=== PATIENT | female | born 1945 | race Caucasian/White ===

== ENCOUNTER → 2017-01-10 | Outpatient (CLI) | payer OTHER ==
[~2017-01-10] MED LIST: ALPR-411 PO; LRT5 PO; PRED20TA PO
[2017-01-10 13:06] LABS: BASO % 0.4 %; BASO ABS # 0.02 K/uL (0-0.2); COMPLETE YES; EOS % 2.8 %; HEMATOCRIT 41.1 % (37-47); LYMPH % 42.1 %; LYMPH ABS # 1.98 K/uL (1.2-3.4); MEAN CELL VOLUME 90.1 fL (80-100); MEAN CORPUSCULAR HEMOGLOBIN 29.8 pg (25-34); MEAN CORPUSCULAR HGB CONC 33.1 g/dl (32-36); MONO % 7.2 %; NEUT % 47.5 %; PLATELET COUNT 183 K/uL (130-400); RED BLOOD COUNT 4.56 M/uL (4.2-5.4)
[2017-01-10 15:36] LABS: BLOOD UREA NITROGEN 20 mg/dl (7-18); BUN/CREATININE RATIO 21.4 (10-20); CALCIUM 9.9 mg/dl (8.5-10.1); CARBON DIOXIDE 30 mmol/L (21-32); CHLORIDE 105 mmol/L (98-107); CREATININE 0.94 mg/dl (0.60-1.20); GLUCOSE 84 mg/dl (70-99); SODIUM 141 mmol/L (136-145)
[2017-01-10 15:41] LABS: CHOLESTEROL 234 mg/dl (0-200); CHOLESTEROL/HDL RATIO 2.8; HDL CHOLESTEROL 83 mg/dl; LDL CHOLESTEROL CALCULATED 128 mg/dl; PHOSPHORUS 3.1 mg/dl (2.5-4.9); TRIGLYCERIDES 114 mg/dl (0-150); VERY LOW DENSITY LIPOPROT CALC 23 mg/dl
== END | disposition home or self-care (01) ==
LOC: C.LABMFLN 09:07
PROVIDERS: ATTEND Family Medicine
DX: E78.5 Hyperlipidemia, unspecified (principal); M81.0 Age-related osteoporosis without current pathological fracture; E55.9 Vitamin D deficiency, unspecified

== ENCOUNTER → 2017-02-13 | Outpatient (CLI) | payer OTHER ==
--- NOTE | 2017-02-13 16:12 | MAMMOGRAPHY REPORT ---
BILATERAL DIGITAL SCREENING MAMMOGRAM WITH CAD: 02/13/2017 CLINICAL HISTORY: Routine screening. Patient has no complaints. TECHNIQUE: Current study was also evaluated with a Computer Aided Detection (CAD) system. Bilateral CC and MLO views were obtained. COMPARISON: Prior outside mammograms dated 06/07/2015, 06/06/2014, 01/22/2013, 10/25/2011 [facility]. BREAST COMPOSITION: There are scattered areas of fibroglandular density in both breasts. FINDINGS: No suspicious masses, calcifications, or areas of architectural distortion are noted in ei ther breast. There has been no significant interval change compared to prior exams. Scattered bilate ral benign appearing calcifications are not significantly changed. IMPRESSION: ACR BI-RADS CATEGORY 2: BENIGN There is no mammographic evidence of malignancy. A 1 year screening mammogram is recommended. The pa tient will receive written notification of the results. Approximately 10% of breast cancers are not detected with mammography. A negative mammographic report should not delay biopsy if a clinically suggestive mass is present. Deepa Irving M.D. ah/:02/13/2017 14:58:59 Sourcing Specialist: Gifty ANAYA(Christiano)(Luis M)(BD), [facility] letter sent: Normal 1/2 BI-RADS Code: ACR BI-RADS Category 2: Benign
== END | disposition home or self-care (01) ==
LOC: C.MAMM 14:21
PROVIDERS: ATTEND Family Medicine
DX: Z12.31 Encounter for screening mammogram for malignant neoplasm of breast (principal)

== ENCOUNTER → 2017-03-12 | Outpatient (CLI) | payer OTHER ==
[2017-03-12 13:53] LABS: THYROID STIMULATING HORMONE 2.18 uIu/ml (0.300-4.500)
[2017-03-12 15:47] LABS: LYME DISEASE AB IGG NEG (NEG); LYME DISEASE AB IGM NEG (NEG)
== END | disposition home or self-care (01) ==
LOC: C.LABMFLN 10:40
PROVIDERS: ATTEND Family Medicine
DX: R51 Headache (principal); R20.2 Paresthesia of skin; R00.2 Palpitations

== ENCOUNTER → 2017-08-12 | Outpatient (CLI) | payer OTHER ==
[2017-08-12 18:00] LABS: URINE APPEARANCE CLEAR (CLEAR); URINE BILIRUBIN NEG (NEG); URINE COLOR YELLOW; URINE NITRITE NEG (NEG); UROBILINOGEN NEG (NEG)
[2017-08-12 18:10] LABS: MANUAL MICROSCOPIC REQUIRED? NO; REVIEW REQ? NO
== END | disposition home or self-care (01) ==
LOC: C.LABMFLN 15:41
PROVIDERS: ATTEND Family Medicine
DX: R35.0 Frequency of micturition (principal)

== ENCOUNTER 2020-01-25 05:28 | Inpatient (IN) ==
--- NOTE | 2020-01-18 09:47 | PAT Medication Instructions ---
Medication Instructions Date of Service January 18, 2020 Home Medications Medication Instructions Recorded metoprolol succinate 25 mg 12.5 mg PO HS #45 tab 05/10/19 tablet,extended release 24 hr ffzbakjivlgr-Yj-psuq-minerals 1 tab PO DAILY cholecalciferol (vitamin D3) 25 mcg (1,000 unit) capsule 1,000 units PO DAILY metoprolol succinate 25 mg tablet,extended release 24 hr 12.5 mg PO HS calcium carbonate-vitamin D3 [Calcium 500 + D] 1 tab PO DAILY DO NOT take the morning of surgery calcium carbonate-vitamin D3 [Calcium 500 + D] 1 tab PO DAILY rqgstkmyypwa-Rj-yzef-minerals 1 tab PO DAILY cholecalciferol (vitamin D3) 25 mcg (1,000 unit) capsule 1,000 units PO DAILY Take evening before surgery metoprolol succinate 25 mg tablet,extended release 24 hr 12.5 mg PO HS OTHERWISE NOTHING TO EAT OR DRINK AFTER MIDNIGHT Other Notes If you have any questions please call us at [phone] or [phone] or [phone] or [phone]
--- NOTE | 2020-01-19 12:08 | Anesthesiology Consultation ---
Date of Service January 19, 2020 Assessment & Plan (1) Encounter for pre-operative examination: Chart Review Chart Review: Acceptable Risk for Surgery and Patient seen in Pre Admission Testing Per PAT visit 01/19/20, patient resides in [facility]- no recent travel except to [facility]. No known PUI or Covid positive contacts. No current Covid related symptoms. No history of Covid testing. Did discourage any travel or new contact to others prior to surgery. -Per patient- she has pelvic cyst noted on CT scan. Per surgeon's note- he will take brief visible examination and contact SPECIAL INSPECTOR if appears grossly abnormal. Did confirm with surgeon's office that if area looks abnormal, SPECIAL INSPECTOR surgery would be done on separate day. Teaching & Discussion Pre-Anesthesia Teaching/Discussion Notes: Instructed NPO after midnight before surgery,except medications with 15 cc of water. Medication instructions provided according to the [facility] guidelines. History Surgery Operation Date: 01/25/20 10:10 Proposed Procedures p Right Robotic Laparoscopic Assisted Partial Nephrectomy - Alo Whittaker MD Height/Weight Height: 5 ft 2 in Weight: 66.4 kg Allergies Allergy/AdvReac Type Severity Reaction Status Date / Time erythromycin base AdvReac Mild UPSET Verified 01/18/20 09:04 STOMACH Medications Home Medications Medication Instructions Recorded Confirmed Last Taken bpnnpnvxqagg-Br-uicm-minerals 1 tab PO DAILY tab 02/04/19 01/18/20 Unknown cholecalciferol (vitamin D3) 25 1,000 units PO DAILY 02/08/19 01/18/20 Unknown mcg (1,000 unit) capsule metoprolol succinate 25 mg 12.5 mg PO HS #45 tab 05/10/19 01/18/20 Unknown tablet,extended release 24 hr calcium carbonate-vitamin D3 1 tab PO DAILY 01/18/20 01/18/20 Unknown [Calcium 500 + D] Past Medical History Medical History (Updated 01/19/20 @ 17:40 by Yoselin Dubose PA-C) Benign positional vertigo Stable and controlled- no recent issues Dyslipidemia Generalized osteoarthritis GERD (gastroesophageal reflux disease) Well controlled and stable Osteoporosis PSVT (paroxysmal supraventricular tachycardia) Seen by cardio in the past- only follows PRN. Well controlled with beta chery Right renal mass Vitamin D deficiency Exercise / Class Metabolic Activity II 4-5 Yardwork/Stairs/Walk up hill (one flight of stairs- no chest pain or SOB ) Past Family History Family History Mother Afib Lymphoma Past Surgical History Surgical History H/O colonoscopy H/O esophagogastroduodenoscopy H/O: hysterectomy History of appendectomy History of cystoscopy History of tooth extraction Hx of cholecystectomy Past Anesthesia History No Hx of Anesthesia Complications and No Family Hx of Anesthesia Complications History of PONV No Hx of Motion Sickness and History of PONV Social History Smoking Status: Former smoker tobacco type: cigarettes Do You Dip or Chew Tobacco: No Smoking End Date: QUIT YOUNG ADULT Hx Alcohol Use: No Hx Substance Use: No substance use type: does not use Review of Systems Patient denies chest pain, shortness of breath, dyspnea on exertion, cough, wheezing, palpitations. No hx of seizures, stroke, [place], apnea/snoring. No hx of blood clots or blood transfusions Physical Exam Vital Signs VITALS BP 126/73 P 77 TEMP 97.9 SP02 98% RESP 16 Constitutional no acute distress ENMT Mouth: no TMJ clicking Thyromental Distance: > or= 3.5 Finger Breadths (3.5) Mallampati Class: II Left front permanent implant Neck neck extension not limited Respiratory normal respiratory effort; no respiratory distress Auscultation: lungs clear to auscultation bilaterally; no wheezes Cardiovascular Rate/Rhythm: regular rate and regular rhythm Heart Sounds: no murmur Vessels: no carotid bruit Musculoskeletal Spine: no pain with cervical ROM Neurologic moves all extremities Psychiatric Orientation: alert Testing Laboratory Results 01/19/20 12:16 01/19/20 12:16 Urine Color Yellow 01/19/20 12:16 Urine Appearance Clear (Clear) 01/19/20 12:16 Urine pH 5.0 (4.5-7.5) 01/19/20 12:16 Ur Specific Gilbert 1.020 (1.000-1.030) 01/19/20 12:16 Urine Protein Negative (Negative) 01/19/20 12:16 Urine Glucose (UA) Negative (Negative) 01/19/20 12:16 Urine Ketones Negative (Negative) 01/19/20 12:16 Urine Nitrite Negative (Negative) 01/19/20 12:16 Ur Leukocyte Esterase 2+ (Negative) H 01/19/20 12:16 Urine WBC (Auto) 5-10 /hpf (0-5) H 01/19/20 12:16 Urine RBC (Auto) 0-4 /hpf (0-4) 01/19/20 12:16 U Hyaline Cast (Auto) 0 /lpf (0-5) 01/19/20 12:16 U Epithel Cells (Auto) 20-30 /lpf (0-5) H 01/19/20 12:16 Urine Bacteria (Auto) Negative (Negative) 01/19/20 12:16 Blood Type O Positive 01/19/20 12:16 Antibody Screen NEGATIVE 01/19/20 12:16 Electrocardiogram Date: 01/19/20 Findings: + NSR @ (73) Chest X-Ray Date: 01/19/20 Findings: + NAD
--- NOTE | 2020-01-19 13:04 | XRay Report ---
XR chest Pre-admission PA/Lat HISTORY: Preop. COMPARISON: None. FINDINGS: The lungs are clear. Cardiac silhouette is normal in size. No pleural effusions. No pneumot horax. Prior cholecystectomy. IMPRESSION: No acute process. ACT 112: Negative or not required by law. Electronically signed by: Alexei Neal M.D. 01/19/2020 1:03 PM
[2020-01-19 13:41] LABS: Basophils # (auto) 0.01 K/uL (0-0.2); Basophils % (auto) 0.2 %; Eosinophils # (auto) 0.03 K/uL (0-0.5); Eosinophils % (auto) 0.6 %; Hematocrit (blood only) 41.6 % (37-47); Hemoglobin 13.5 g/dL (12.0-16.0); Lymphocytes # (auto) 1.67 K/uL (1.2-3.4); Lymphocytes % (auto) 33.7 %; Mean Corpuscular Hemoglobin 29.5 pg (25-34); Mean Corpuscular Hgb Conc 32.5 g/dL (32-36); Mean Corpuscular Volume 90.8 fL (80-100); Mean Platelet Volume 11.3 fL (7.4-10.4); Monocytes # (auto) 0.31 K/uL (0.11-0.59); Monocytes % (auto) 6.3 %; Neutrophils # (auto) 2.93 K/uL (1.4-6.5); Neutrophils % (auto) 59.2 %; Platelet Count 205 K/uL (130-400); RDW Coefficient of Variation 13.7 % (11.5-14.5); RDW Standard Deviation 45.2 fL (36.4-46.3); Red Blood Count 4.58 M/uL (4.2-5.4); White Blood Count 4.95 K/uL (4.8-10.8)
[2020-01-19 13:48] LABS: BUN Creatinine Ratio 17.1 (10-20); Calcium 9.7 mg/dl (8.5-10.1); Creatinine Clr Calc Pharmacy 47.8 ml/min; Est GFR (African American) 69.4; Est GFR (Non-African American) 59.8
[2020-01-19 14:39] LABS: Appearance Urine Clear (Clear); Bacteria Urine Automated Negative (Negative); Bilirubin Urine Negative (Negative); Blood Urine Negative (Negative); Cast Urine Automated 0 /lpf (0-5); Color Urine Yellow; Epithelial Cell Urine Auto 20-30 /lpf (0-5); Glucose Urine UA Negative (Negative); Ketones Urine Negative (Negative); Leukocyte Esterase Urine 2+ (Negative); Nitrite Urine Negative (Negative); Protein Urine Negative (Negative); RBC Urine Automated 0-4 /hpf (0-4); Urobilinogen Urine Negative (Negative)
--- NOTE | 2020-01-19 16:20 | Electrocardiogram Report ---
Test Reason : Blood Pressure : / mmHG Vent. Rate : 073 BPM Atrial Rate : 073 BPM P-R Int : 152 ms QRS Dur : 084 ms QT Int : 396 ms P-R-T Axes : 043 072 039 degrees QTc Int : 436 ms Normal sinus rhythm Normal ECG No previous ECGs available Confirmed by Timmy Hart ([id number]) on 01/19/2020 4:20:30 PM Referred By: Alo Whittaker Confirmed By:Indio Hart
[2020-01-25] MEDS ORDERED: CEFAZOLIN 2000MG 2,000 MG/15 ML SYR IV SCH ×2 (06:00→11:15)
[2020-01-25] MEDS ORDERED: LACTATED RINGER'S 1,000 ML IV SCH (06:00)
[2020-01-25] MEDS ORDERED: PROPOFOL IV EMULSION 10 MG/ML 20 ML VIAL IV ONE ×2 (06:49→11:33)
[2020-01-25] MEDS ORDERED: fentaNYL citrate 100 MCG/2 ML VIAL ONE (06:49)
[2020-01-25] MEDS ORDERED: MIDAZOLAM HCL 1 MG/ML 2ML VIAL ONE (06:49)
[2020-01-25] MEDS ORDERED: DEXAMETHASONE SOD INJ 4 MG/ML VIAL ONE (06:49)
[2020-01-25] MEDS ORDERED: ROCURONIUM BROMIDE 10 MG/ML 5 ML VIAL ONE (06:49)
[2020-01-25] MEDS ORDERED: ONDANSETRON INJ 2 MG/ML 2 ML VIAL ONE (06:49)
[2020-01-25] MEDS ORDERED: LIDOCAINE HCL 2% 2 ML VIAL/AMP(20MG/ML) INFIL ONE (06:49)
[2020-01-25] MEDS ORDERED: SCOPOLAMINE 1.5 MG TDSY TD ONE ×3 (07:18→07:23)
[2020-01-25] MEDS ORDERED: ATROPINE SULFATE 0.1 MG/ML 10ML SYR IV PRN (07:18)
[2020-01-25] MEDS ORDERED: ePHEDrine sulfate 50 MG/ML AMP IV PRN (07:18)
[2020-01-25] MEDS ORDERED: ONDANSETRON INJ 2 MG/ML 2 ML VIAL IV PRN ×2 (07:18→11:11)
--- NOTE | 2020-01-25 07:22 | History & Physical Bridge Note ---
Date of Service January 25, 2020 History & Physical Bridge Note I have examined the patient, reviewed the History & Physical and in the interval since the performance of the History & Physical I have noted the following changes of clinical significance: no changes noted
[2020-01-25] MEDS ORDERED: BUPIVACAINE 0.5 % 5 MG/1 ML MPF 30ML VIAL ONE (08:23)
[2020-01-25] MEDS ORDERED: HYDROmorphone INJ 2 MG/ML SYR/VIAL ONE (08:55)
[2020-01-25] MEDS ORDERED: MANNITOL 25% 12.5 GM/50 ML VIAL IV ONE ×2 (09:47→11:33)
[2020-01-25] MEDS ORDERED: FLOSEAL HEMOSTATIC MATRIX 10ML TOP ONE (10:03)
[2020-01-25] MEDS ORDERED: TISSEEL FIBRIN SEALANT 10ML TOP ONE (10:03)
[2020-01-25] MEDS ORDERED: OXYCODONE/ACETAMINOPHEN 5mg/325mg TAB PO PRN ×2 (11:03)
[2020-01-25] MEDS ORDERED: MoRPHine SULFATE 2 MG/ML CARP IV PRN (11:03)
--- NOTE | 2020-01-25 11:03 | Operative Report ---
PG Post Operative Report Pre & Post Diagnosis Operation Date: 01/25/20 07:30 Pre-Op Diagnosis: Renal Mass Post-Op Diagnosis: Renal Mass I identified the patient and participated in the time-out.: Yes Procedure Operation Date: 01/25/20 07:30 Actual Procedures p Robotic Laparoscopic-Assisted Right Partial Nephrectomy(Right) - Alo Whittaker MD Surgeon Timmy Whittaker MD Bin Cleaner Manuel Valentin, Cinthia Zacarias, Deepa Leon Estimated Blood Loss 50 Findings Consistent with Post-Op Diagnosis Specimens Right renal tumor Description of Procedure Patient was identified in the preoperative holding area, appropriate informed consents were reviewed and completed and she was transported to the operating suite. Upon arrival she received appropriate preoperative antibiotics in the form of Ancef. Adequate general anesthesia was achieved and she was placed in the left side down right side up lateral decubitus position with the bed flexed. She was padded and braced appropriately before sterile prep and drape. Of note, her preoperative imaging was brought up on her in room monitors prior to beginning the case. To begin the case a Veress needle was passed into the right upper quadrant underneath the costal margin. There was insufflation to 15 mmHg without incident. I then marked my ideal port placement positions with a 12 mm port placed approximately 4 cm above the umbilicus just to the lateral edge of the rectus border as an anticipated camera port with an 8 mm robotic port approximately 8 cm below and 4 cm lateral to the 12 mm. I first incised the 12 mm camera port and passed a Visiport and 0 degree lens. Inspection revealed a healthy-appearing abdominal wall without evidence of significant adhesions. I inspected the other sites of potential port placement and all were free of adhesions and safe to proceed with port placement. I then proceeded to place the previously marked ports as well as an additional 8 mm port approximately 8 cm further cephalad up to the rectus border. A subxiphoid liver retracting port was placed (5 mm), 212 mm marketing assistant ports were placed in the midline, one in infraumbilical location the other approximately 8 cm above the umbilicus. The robot was then docked and I began by medializing the colon by incising the white line of Toldt. I carried this dissection from approximately 10 cm below the kidney through the hepatic flexure. The duodenum was located immediately posterior to the colon, however it was medial enough that it required minimal k ocherization. I was able to identify the inferior vena cava well below the kidney as well as the gonadal vein penetrating into the IVC. I was able to trace the lateral border of the IVC until I encountered the renal vein. I skeletonized the renal vein towards the kidney and cleared the vein circumferentially. Immediately inferior to the vein I encountered a solitary renal artery. This was skeletonized entirely. Of note, her tumor is located in the upper ureter, medial portion of the kidney immediately above the renal vein and closely abutting it. I therefore elected to proceed back to the renal vein and traced the vein into its penetration into the kidney. I was able to visualize the border of the tumor immediately adjacent to the vein. Before proceeding further, I incised serratus fascia overlying the kidney. I expose the lateral and posterior aspect of the tumor and a clear kidney margin immediately lateral to that. I then returned to the medial and superior portion of the kidney and found the border of the tumor in this area. I was able to separate the adrenal away from the kidney dissecting between the 2 to expose normal kidney as well as tumor. I did leave a fat On top of the tumor to be used as a handle to aid with manipulation as I was dissecting. At that time I performed a laparoscopic ultrasonographic evaluation of the kidney identifying the borders of the tumor and marking the capsule where I anticipated an incision. I then preplaced 2V lock sutures for renoraphy. One was a 3 oh for the deep layer followed by a 2 oh for the more superficial layer. 12.5 g of mannitol was then administered. The clock was marked and excision of the tumor initiated. I was able to begin on the medial aspect of the tumor work towards the vein and lift the tumor off of the vein as I dissected. We had excellent clamp control and in turn I was able to follow the border of the tumor without difficulty. There was minimal bleeding. I did encounter several vessels and collecting system at the deep extent of the resection. I carried my dissection laterally until the tumor was entirely freed. Of note, there was a lateral cyst which was incorporated into the specimen as it may in fact be part of the tumor, but it served as a nice border to follow. I then passed this specimen into the retrocolic gutter just below the kidney. I then began renorraphy with a 30V lock as a deep layer to close collecting system and vessels. This was controlled proximally and distally with a Weck clip outside of the capsule of the kidney. I then began reapproximation of the cortex utilizing a V lock stitch in a running fashion with sliding clip technique. We then removed the clampclamp time was 13 minutes of warm ischemic time. Hemostasis was excellent. I did put in 2 additional superficial stitches just to reapproximate the kidney. FloSeal was placed over the incision followed by Tisseel. Unfortunately, she has very scant Gerota's fascia so I had no subst antial fat layer to close over the defect and left it exposed. A BENNY drain was guided through our lateralmost robotic port and into the retro- colic gutter. The specimen was collected in an Endo Catch bag and withdrawn through the infraumbilical port. This infraumbilical port was closed with a 0 Vicryl suture through the fascia. The midline port was also closed with 0 Vicryl. Other ports were closed with 4-0 Monocryl. The drain was sutured in place. All skin incisions were completed with Dermabond. All were infiltrated with half percent Marcaine prior to closure. Manuel Valentin assisted me throughout the simpson portions of the case including placement of the bulldog clamps, excision of the tumor and reconstruction of the kidney. Cinthia Zacarias and Deepa Leon assisted from incision to closure. I attest to the content of the Intraoperative Record and any orders documented therein. Any exceptions are noted below.
[2020-01-25] MEDS ORDERED: GLYCOPYRROLATE 0.2 MG/ML VIAL ONE (11:33)
[2020-01-25] MEDS ORDERED: NEOSTIGMINE METHYLSULFATE 5 MG/5 ML SYR ONE (11:33)
[2020-01-25] MEDS: fentaNYL citrate 100 MCG/2 ML VIAL IV PRN ×4 (11:50→12:05)
[2020-01-25 12:05] LABS: Basophils # (auto) 0.01 K/uL (0-0.2); Basophils % (auto) 0.1 %; Hemoglobin 12.1 g/dL (12.0-16.0); Immature Granulocytes # (auto) 0.02 K/uL (0.00-0.02); Immature Granulocytes % (auto) 0.2 %; Lymphocytes # (auto) 0.42 K/uL (1.2-3.4); Lymphocytes % (auto) 4.5 %; Mean Corpuscular Hemoglobin 29.4 pg (25-34); Mean Corpuscular Volume 89.8 fL (80-100); Mean Platelet Volume 10.8 fL (7.4-10.4); Monocytes # (auto) 0.04 K/uL (0.11-0.59); Monocytes % (auto) 0.4 %; Neutrophils # (auto) 8.84 K/uL (1.4-6.5); Neutrophils % (auto) 94.8 %; Platelet Count 168 K/uL (130-400); RDW Coefficient of Variation 13.6 % (11.5-14.5); RDW Standard Deviation 44.9 fL (36.4-46.3); Red Blood Count 4.12 M/uL (4.2-5.4); White Blood Count 9.33 K/uL (4.8-10.8)
--- NOTE | 2020-01-25 12:16 | Anesthesiology Progress Note ---
Date of Service January 25, 2020 Anesthesia Post Procedure Vital Signs Vital Signs: Temp Pulse Pulse Resp BP Pulse Ox 01/25/20 12:10 94 H 18 134/67 99 01/25/20 12:00 80 18 117/59 L 99 01/25/20 11:50 95 H 18 130/71 99 01/25/20 11:41 97.2 F L 103 H 18 120/65 99 01/25/20 05:50 98.2 F 86 18 147/97 H 98 Transfer of Care Handoff Completed per policy Notes Mental Status: alert / awake / arousable and participated in evaluation Patient Amnestic to Procedure: Yes Nausea / Vomiting: adequately controlled Pain: adequately controlled Airway Patency, RR, SpO2: stable & adequate BP & HR: stable & adequate Hydration State: stable & adequate Anesthetic Complications: no major complications apparent and Pt Satisfied with anesthetic care
[2020-01-25 12:22] LABS: Calcium 9.2 mg/dl (8.5-10.1); Creatinine Clr Calc Pharmacy 41.1 ml/min; Est GFR (African American) 58.1; Est GFR (Non-African American) 50.1; Mean Corpuscular Hgb Conc 32.7 g/dL (32-36); Potassium 3.7 mmol/L (3.5-5.1)
[2020-01-25] MEDS: CHECK SCOPOLAMINE PATCH PLACEMENT SCH ×3 (12:57→23:35)
[2020-01-25] MEDS: LACTATED RINGER'S 1,000 ML IV SCH ×2 (13:23→21:13)
[2020-01-25] MEDS: MoRPHine SULFATE 2 MG/ML CARP IV PRN ×2 (13:25→18:26)
[2020-01-25] MEDS: CIPROFLOXACIN / D5W 400 MG/200 ML BAG IV SCH ×2 (14:17→23:59)
[2020-01-25] MEDS ORDERED: CHECK SCOPOLAMINE PATCH PLACEMENT SCH (16:00)
[2020-01-25] MEDS: SIMETHICONE 80 MG CHEW PO PRN (17:29)
[2020-01-25] MEDS: METOPROLOL SUCC 25MG EXT REL TAB PO SCH (21:46)
[2020-01-25] MEDS: DOCUSATE SODIUM 100 MG CAP PO SCH (21:46)
[2020-01-26] MEDS: ACETAMINOPHEN 325 MG TAB PO PRN ×2 (00:08→17:49)
[2020-01-26] MEDS: SIMETHICONE 80 MG CHEW PO PRN ×2 (00:08→13:28)
[2020-01-26] MEDS: LACTATED RINGER'S 1,000 ML IV SCH ×3 (04:47→20:30)
[2020-01-26] MEDS: MoRPHine SULFATE 2 MG/ML CARP IV PRN (04:56)
[2020-01-26 05:39] LABS: Hematocrit (blood only) 35.1 % (37-47); Hemoglobin 11.4 g/dL (12.0-16.0); Mean Corpuscular Hemoglobin 29.2 pg (25-34); Mean Corpuscular Hgb Conc 32.5 g/dL (32-36); Mean Corpuscular Volume 89.8 fL (80-100); Mean Platelet Volume 10.8 fL (7.4-10.4); Platelet Count 178 K/uL (130-400); RDW Coefficient of Variation 13.8 % (11.5-14.5); RDW Standard Deviation 45.3 fL (36.4-46.3); Red Blood Count 3.91 M/uL (4.2-5.4); White Blood Count 12.26 K/uL (4.8-10.8)
[2020-01-26] MEDS ORDERED: COUGH DROP (SUGAR FREE) LOZ 24 LOZ/1 BOX BUCCAL ONE (06:09)
[2020-01-26 06:10] LABS: BUN Creatinine Ratio 10.8 (10-20); Calcium 9.2 mg/dl (8.5-10.1); Creatinine Clr Calc Pharmacy 42.2 ml/min; Est GFR (African American) 60.1; Est GFR (Non-African American) 51.8; Potassium 4.1 mmol/L (3.5-5.1)
[2020-01-26] MEDS ORDERED: KETOROLAC TROMETHAMINE 15 MG/ML VIAL IV ONE (08:05)
[2020-01-26] MEDS: DOCUSATE SODIUM 100 MG CAP PO SCH ×2 (08:09→20:19)
[2020-01-26] MEDS: CHECK SCOPOLAMINE PATCH PLACEMENT SCH ×3 (08:09→23:10)
--- NOTE | 2020-01-26 08:09 | Urology Progress Note ---
Date of Service January 26, 2020 Assessment & Plan (1) Right renal mass: POD#1 s/p R part nx - doing well - ambulate - labs appropriate - toradol now for pain - advance diet - leave GEOVANNI until just before dc Subjective pain overnight - moderately better today ambulated anxious for food trying to avoid narcotics labs stable urine appropriate poe out this am low drain output Physical Exam Physical Exam: incisions appropriate abd soft geovanni with scant output Results & Data Vital Signs (Past 12 Hours) Vital Signs Temp Pulse Resp BP BP Pulse Ox 01/26/20 03:30 36.8 C 84 18 125/75 95 01/25/20 22:40 36.6 C 72 16 116/70 97 PG Care Time/CCT Total # of Minutes Spent Total Time Spent with Patient: Total time spent is greater than 50% in coord ination of care (as documented) at patient's floor/unit and/or counseling patient: Coding Level of Care Code None Diagnoses Right renal mass N28.89
[2020-01-26] MEDS: CIPROFLOXACIN / D5W 400 MG/200 ML BAG IV SCH (12:42)
[2020-01-26] MEDS: METOPROLOL SUCC 25MG EXT REL TAB PO SCH (20:19)
[2020-01-27] MEDS: CIPROFLOXACIN / D5W 400 MG/200 ML BAG IV SCH (00:16)
[2020-01-27] MEDS: ACETAMINOPHEN 325 MG TAB PO PRN (02:35)
[2020-01-27] MEDS: LACTATED RINGER'S 1,000 ML IV SCH ×2 (04:44→11:16)
[2020-01-27 06:04] LABS: Hematocrit (blood only) 36.5 % (37-47); Hemoglobin 11.7 g/dL (12.0-16.0); Mean Corpuscular Hemoglobin 29.4 pg (25-34); Mean Corpuscular Hgb Conc 32.1 g/dL (32-36); Mean Corpuscular Volume 91.7 fL (80-100); Mean Platelet Volume 10.9 fL (7.4-10.4); Platelet Count 164 K/uL (130-400); RDW Coefficient of Variation 13.9 % (11.5-14.5); RDW Standard Deviation 47.2 fL (36.4-46.3); Red Blood Count 3.98 M/uL (4.2-5.4); White Blood Count 11.95 K/uL (4.8-10.8)
[2020-01-27 06:40] LABS: BUN Creatinine Ratio 11.1 (10-20); Calcium 9.3 mg/dl (8.5-10.1); Creatinine Clr Calc Pharmacy 39.3 ml/min; Est GFR (Non-African American) 47.5; Potassium 3.8 mmol/L (3.5-5.1)
[2020-01-27] MEDS: CHECK SCOPOLAMINE PATCH PLACEMENT SCH (07:48)
[2020-01-27] MEDS: DOCUSATE SODIUM 100 MG CAP PO SCH (08:05)
--- NOTE | 2020-01-27 08:35 | Urology Progress Note ---
Date of Service January 27, 2020 Assessment & Plan (1) Right renal mass: suspected RCC - path pending PoD#2 s/p right robo partial nephrectomy - progressing appropriately - GEOVANNI out today - dc home Subjective improved further today ambulating without issues mild abdominal pain tolerating a diet good UoP limited GEOVANNI output passing flatus anxious to go home Physical Exam Physical Exam: incisions appropriate geovanni serosang Results & Data Vital Signs (Past 12 Hours) Vital Signs Temp Pulse Resp BP BP Pulse Ox 01/27/20 07:32 36.8 C 76 16 126/75 95 01/26/20 23:16 36.8 C 90 16 134/82 95 PG Care Time/CCT Total # of Minutes Spent Total Time Spent with Patient: Total time spent is greater than 50% in coordination of care (as documented) at patient's floor/unit and/or counseling patient: Coding Level of Care Code 11102 Subseq Hosp Care Lvl 2 Diagnoses Right renal mass N28.89
--- NOTE | 2020-01-27 08:39 | Discharge Summary ---
Date of Service January 27, 2020 Admission HPI Per Admitting Provider right renal mass presenting for surgery to remove the mass Principal Diagnosis right renal mass - suspected RCC Discharge Data Allergies Allergy/AdvReac Type Severity Reaction Status Date / Time erythromycin base AdvReac Mild UPSET Verified 01/25/20 05:39 STOMACH hydrocodone [From Vicodin] AdvReac Mild Vomiting Verified 01/25/20 05:49 Procedures Performed Operation Date: 01/25/20 07:30 Actual Procedures p Robotic Laparoscopic-Assisted Right Partial Nephrectomy(Right) - Alo Whittaker MD Hospital Course (1) Right renal mass: surgery as dictated previously in the operative report progressed appropriately over POD#1 and 2 pain improved good Uop stable labs tolerating a diet, bowel function returned on day 2 stable for d/c home drain removed prior to dc Total Time Total Time Spent Total Time Spent (In Minutes): 20 Total Time Includes: Examination of the Patient, Discharge Planning and Medication Reconciliation Discharge Plan Discharge Items Patient Disposition: Home - Self-Care Reason For Visit: Renal Mass Discharge Diagnosis: Renal mass Activity: Per Instructions section Lifting: No more than 25 pounds Bathing Comment: No tub baths, okay to shower tonight. Sexual Activity: Wait until after follow-up appointment Exercise/Sports: Wait until after follow-up appointment Driving/Machine Use: Do not drive while taking narcotic pain medication Non-emergency contact: Surgeon and Urologist Call non-emergency contact if: your pain is concerning for you, your temperature is above 101, your wound has increased redness and your wound has increased drainage Follow-up/Referrals: Alo Whittaker MD [Physician] - 02/07/20 2:30 pm Rula Hutchins MD [Primary Care Provider] - Diet: Regular Addtl Attending Provider Instructions: Please take all medications as prescribed and keep all follow-ups as scheduled. Please call our office at [phone] with any questions, concerns or need to reschedule appointments for any reason. We are happy to assist you. Recovering at home: We recommend having someone with you for the first few days after surgery to help care for you. It is okay to shower tomorrow. Please avoid swimming, bathing or using hot tub until incisions are well healed. Avoid driving until you are not requiring pain medication any further. Walk at least a few times a day. Increase your distance, as you feel able. Stairs in your home are okay. Please avoid strenuous or sexual activity until your follow-up. We recommend using stool softener (i.e. Colace) to prevent constipation and straining, especially the first two weeks post operatively. Call [facility] at [phone] if you experience: Chest pain or trouble breathing (call [phone] or go to the hospital). Fever of 101F or higher Symptoms of infection at incision site, including redness or swelling, warmth, or bad-smelling drainage If you have catheter, and you notice: o Bloody urine or drainage that is dark red or has large clots (Please remember a small amount of blood is normal) o No drainage from the catheter for more than 6 hours o The catheter comes out of your bladder Pain that is not controlled with medicines Pending Studies at Discharge: Yes Studies:: pathology Stand-Alone Forms: My [place] [facility], Smoking Cessation Medications and DC Order Prescriptions: New ciprofloxacin HCl 500 mg tablet 500 mg PO BID 3 Days Qty: 6 RF: 0 oxycodone-acetaminophen [Percocet] 5-325 mg tablet 1 tab PO TID PRN (Reason: pain) Qty: 14 RF: 0 docusate sodium [Colace] 100 mg capsule 100 mg PO BID Qty: 60 RF: 0 tramadol 50 mg tablet 50 mg PO Q8H PRN (Reason: pain) Qty: 30 RF: 0 Continued metoprolol succinate 25 mg tablet extended release 24 hr 12.5 mg PO HS Qty: 45 RF: 3 Multiple Vitamin, Womens tablet 1 tab PO DAILY RF: 0 cholecalciferol (vitamin D3) 1,000 unit capsule 1,000 units PO DAILY RF: 0 calcium carbonate-vitamin D3 [Calcium 500 + D] 500 mg(1,250mg) -400 unit Tablet,Chewable 1 tab PO DAILY RF: 0 Discharge Orders: Discharge Order (Routine); Ordered 01/27/20 Ordered By: Alo Whittaker Admission Data Admit Date/Time: 01/25/20 11:03 Attending Provider: Alo Whittaker Admit Provider: Alo Whittaker Primary Care Provider: Kolonich,Rula A. Coding Level of Care Code D/C Day Management <30 mins Diagnoses Right renal mass N28.89
--- NOTE | 2020-02-02 13:35 | Coding Query ---
PATHOLOGY To promote full compliance with coding requirements relating to patient care, physician participation is requested in all cases of boathouse keeper uncertainty. Please assist us with the question(s) below: Please review the Pathology report and please document any relevant diagnosis(es) below: Diagnosis(es): Thank you Emy Jnug RENAL CELL CARCINOMA MARVD
== END 2020-01-27 12:45 | disposition home or self-care (01) | DRG 658 ==
LOC: ASU 05:28 → 3E 11:03